=== PATIENT | male | born 1985 | race Two or more races ===

== ENCOUNTER 2017-11-09 15:14 | Emergency (ER) | payer SELFPAY ==
[~2017-11-09] VITALS: Ht 180.3 cm; Wt 72.7 kg
[2017-11-09] MEDS ORDERED: METHOCARBAMOL 500 MG TABLET PO ONE (16:00)
[2017-11-09] MEDS ORDERED: KETOROLAC TROMETHAMINE 30 MG/ML VIAL IM ONE (16:00)
[2017-11-09 16:45] VITALS: BP 125/80
== END 2017-11-09 16:57 | disposition home or self-care (01) ==
LOC: EMS 15:15
DX: S13.4XXA Sprain of ligaments of cervical spine, initial encounter (principal); R03.0 Elevated blood-pressure reading, without diagnosis of hypertension; V43.52XA Car driver injured in collision with other type car in traffic accident, initial encounter; Y93.89 Activity, other specified; Y92.89 Other specified places as the place of occurrence of the external cause; Y99.8 Other external cause status
CPT/HCPCS: 71046; 72040; 96372; 99284; J1885